=== PATIENT | female | born 1985 | race Caucasian/White ===

== ENCOUNTER 2016-10-10 13:47 | Outpatient (CLI) | payer BC ==
--- NOTE | 2016-10-10 16:06 | XRAY Report ---
SACROILIAC JOINTS: 10/10/2016 CLINICAL INDICATION: Joint disorder. FINDINGS: AP and bilateral oblique views of the sacroiliac joints demonstrate normal joint spaces bi laterally. No erosion or sclerosis is seen. An IUD is incidentally noted in the pelvis. IMPRESSION: NORMAL SACROILIAC JOINTS. JOB #: [id number] EXT JOB #:[id number]
== END 2016-10-10 13:48 | disposition home or self-care (01) ==
LOC: DI.S 13:47
PROVIDERS: ATTEND Internal Medicine
DX: M25.9 Joint disorder, unspecified (principal)
CPT/HCPCS: 72202